=== PATIENT | male | born 1955 | race Caucasian/White ===

== ENCOUNTER → 2020-11-13 | Outpatient (CLI) | payer BC ==
[~2020-11-13] MED LIST: ASPIRIN EC81 MG PO; CHLORTHALIDONE25 MG PO; CITALOPRAM HBR20 MG PO; FISH OIL 1,0001 EAC4 PO; GLUCOPHAGE1000 MG PO; IBUPROFEN600 MG PO; IMDUR ER TAB 3030 MG PO; LIPITOR40 MG PO; LOSARTAN POTAS100 MG PO; NORVASC5 MG PO; PROTONIX40 MG PO; ZOFRAN4 MG PO
== END ==
LOC: MRI 13:03
DX: R41.3 Other amnesia (principal); R09.89 Other specified symptoms and signs involving the circulatory and respiratory systems; I65.23 Occlusion and stenosis of bilateral carotid arteries
CPT/HCPCS: 36415; 70553; 82565; 93880; A9577

== ENCOUNTER → 2021-03-20 | Outpatient (CLI) | payer BC ==
[2021-03-21 07:10] LABS: ALPHA-1-ANTITRYPSIN, SERUM 112 mg/dL (101-187)
[2021-03-21 17:12] LABS: MITOCHONDRIAL (M2) ANTIBODY <20.0 Units (0.0-20.0)
== END ==
LOC: LAB 07:10
PROVIDERS: Internal Medicine Gastroenterology
DX: M25.562 Pain in left knee (principal); M25.561 Pain in right knee; I83.93 Asymptomatic varicose veins of bilateral lower extremities
CPT/HCPCS: 36415; 73564; 82103; 82728; 83540; 83550; 86038